=== PATIENT | female | born 1975 | race Caucasian/White ===

== ENCOUNTER 2017-08-03 11:10 | Emergency (ER) | payer MEDICAID ==
[~2017-08-03] VITALS: Ht 170.2 cm; Wt 90.7 kg
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
--- NOTE | 2017-08-03 11:22 | NUR ---
DR WREN AT BEDSIDE FOR EVAL.
--- NOTE | 2017-08-03 11:53 | NUR ---
Patient discharged to home in stable condition. Written and verbal after care instructions given. Patient verbalizes understanding of instruction.
[2017-08-03 11:54] VITALS: BP 110/56
== END 2017-08-03 11:55 | disposition home or self-care (01) ==
LOC: ER 11:11
DX: F45.8 Other somatoform disorders (principal); F41.1 Generalized anxiety disorder; R00.0 Tachycardia, unspecified
CPT/HCPCS: 99284; A4606; Z7610